=== PATIENT | male | born 1990 | race Caucasian/White ===

== ENCOUNTER 2021-09-16 11:15 | Emergency (ER) | payer SELFPAY ==
[2021-09-16 11:27] VITALS: BP 119/74; PULSE 62; TEMP 97.8; BMI 29.0
[2021-09-16] MEDS ORDERED: KETOROLAC TROMETHAMINE 30 MG/1 ML VIAL IM ONE (12:22)
[2021-09-16] MEDS ORDERED: KETOROLAC TROMETHAMINE 30 MG/1 ML VIAL ONE (12:23)
== END 2021-09-16 13:50 | disposition home or self-care (01) ==
LOC: JERFT 11:15
PROC: 3E0233Z Introduction of Anti-inflammatory into Muscle, Percutaneous Approach (ICD-10-PCS; principal; 2021-09-16)
DX: S20.211A Contusion of right front wall of thorax, initial encounter (principal); W50.0XXA Accidental hit or strike by another person, initial encounter; Y93.66 Activity, soccer
CPT/HCPCS: 71101-TC-RT-FY; 99284-25

== ENCOUNTER 2023-10-27 18:25 | Emergency (ER) | payer OTHER ==
[2023-10-27 18:37] VITALS: BP 117/68; PULSE 63; RESP 17; TEMP 98.1; BMI 29.0
[2023-10-27] MEDS ORDERED: oxyCODONE HCL 5 MG TABLET ONE (18:46)
[2023-10-27] MEDS: oxyCODONE HCL 5 MG TABLET PO ONE (18:48)
[2023-10-27] MEDS ORDERED: KETOROLAC TROMETHAMINE 30 MG/1 ML VIAL ONE (20:33)
[2023-10-27] MEDS ORDERED: ACETAMINOPHEN 500 MG TABLET (FP) ONE (20:33)
[2023-10-27] MEDS: ACETAMINOPHEN 500 MG TABLET (FP) PO ONE (20:46)
[2023-10-27] MEDS: KETOROLAC TROMETHAMINE 30 MG/1 ML VIAL IM ONE (20:46)
== END 2023-10-27 20:59 | disposition home or self-care (01) ==
LOC: JERFT 18:25
PROC: 3E023GC Introduction of Other Therapeutic Substance into Muscle, Percutaneous Approach (ICD-10-PCS; principal; 2023-10-27)
DX: S43.121A Dislocation of right acromioclavicular joint, 100%-200% displacement, initial encounter (principal); W19.XXXA Unspecified fall, initial encounter; Y93.66 Activity, soccer
CPT/HCPCS: 73030-TC-RT-FY; 73070-TC-LT-FY; 96372; 99284-25